=== PATIENT | male | born 1955 | race Caucasian/White ===

== ENCOUNTER 2025-01-31 10:05 | Outpatient (REF) | payer OTHER, SELFPAY ==
--- NOTE | 2025-01-31 | EMG_ITS ---
Please see the attached neurophysiology report MTDD
--- NOTE | 2025-01-31 | EMG_ITS ---
Please see the attached neurophysiology report MTDD
--- OUTSIDE RECORDS SUMMARY | 2025-01-31 10:35 | XMS_ITS | Clinical Summary ---
Author Organization [address] [place] [address] Address [address] [place] [address] Phone Care Team Providers Care Swaging Machine Operator Name Role Phone Caden Goins MD Primary Care Provider [phone] Allergies Active Allergy Reactions Criticality Noted Date Comments Codeine 02/25/2011 Medications lisinopril (PRINIVIL,ZESTR IL) 40 mg tablet Take 1 tablet by mouth once daily 90 tablet 2 4 Active hydroCHLOROthia zide (MICROZIDE) 12.5 mg capsule Take 1 capsule by mouth once daily in the morning 90 capsule 1 5 Active DICLOFENAC SODIUM TOP Apply 1 g topically 4 times daily as needed (Hand pain). 4 Active gabapentin (NEURONTIN) 300 mg capsule Take 1 capsule (300 mg total) by mouth at bedtime. 30 each 2 5 Active Active Problems Problem Noted Date Diagnosed Date Bite, insect 05/25/2019 Acid reflux 09/30/2017 Constipation 09/30/2017 Hyperlipidemia 09/30/2017 Assessment & Plan (11/23/2024 2:51 PM EDT): Low-fat diet advised Orders: CBC and differential; Future Comprehensive metabolic panel; Future Lipid panel with reflex to direct LDL; Future Thyroid stimulating hormone; Future Hemoglobin A1c; Future Vitamin B12; Future Hypertension 09/30/2017 Assessment & Plan (11/23/2024 2:51 PM EDT): Hypertension is under control on hydrochlorothiazide and lisinopril Orders: CBC and differential; Future Comprehensive metabolic panel; Future Lipid panel with reflex to direct LDL; Future Thyroid stimulating hormone; Future Hemoglobin A1c; Future Vitamin B12; Future Peripheral neuropathy 04/30/2017 Assessment & Plan (11/23/2024 2:51 PM EDT): In both hands for some time check B12 and A1c levels. Gabapentin sent to pharmacy. Orders: CBC and differential; Future Comprehensive metabolic panel; Future Lipid panel with reflex to direct LDL; Future Thyroid stimulating hormone; Future Hemoglobin A1c; Future Vitamin B12; Future Ambulatory referral to Neurology; Future Anxiety 10/17/2015 Internal hemorrhoids 10/21/2013 Irritable bowel syndrome 10/17/2012 Encounters Date Type Department Care Team Description 11/30/2024 Telephone Internal Medicine [facility] [address] [phone] Caden Goins MD Appointment 11/24/2024 Telephone Internal Medicine [facility] [address] [phone] Caden Goins MD Joseph: Lab results 11/23/2024 1:00 PM EDT Office Visit Internal Medicine [facility] [address] [phone] Caden Goins MD Primary hypertension (Primary Dx); Pure hypercholesterolemia; Low platelet count (CMS/HCC V24); Idiopathic peripheral neuropathy; Hyperglycemia; Screening for malignant neoplasm of prostate from Last 3 Months Immunizations Name Administration Dates Next Due Influenza trivalent, 0.5mL ( Fluad) 65yo and older 05/02/2021,05/02/2020 Influenza, Unspecified 05/15/2023 Moderna SARS-CoV-2 COVID-19, mRNA, LNP-S, preservative free 05/25/2021,11/14/2020,10/17/2020 Pneumococcal polysaccharide 23 valent (Pneumovax 23) 2yo and older 11/10/2010 Tdap Tetanus diptheria acell ular pertussis (Boostrix; Adacel) 7yo and older 06/11/2022,08/07/2011 Surgical History Surgery Date Site/Laterality Comments CATARACT EXTRACTION PROCEDURE: HISTORICAL CATARACT REMOVAL COLONOSCOPY PROCEDURE: HISTORICAL COLONOSCOPY; COMMENT: no report, no results Medical History Medical History Date Comments Acid reflux 09/30/2017 DX:Acid reflux Anxiety 10/17/2015 DX:Anxiety Constipation 09/30/2017 DX:Constipation Hyperlipidemia 09/30/2017 DX:Hyperlipidemi a Hypertension 09/30/2017 DX:Hypertension Internal hemorrhoids 10/21/2013 DX:Internal hemorrhoids Irritable bowel syndrome 10/17/2012 DX:Irri table bowel syndrome Peripheral neuropathy 04/30/2017 DX:Periphe ral neuropathy Social History Tobacco Use Types Packs/Day Years Used Date Smoking Tobacco: Former Cigarettes Q uit: 11/17/2013 Smokeless Tobacco: Never Alcohol Use Standard Drinks/Week Comments No 0 (1 standard drink = 0.6 oz pur e alcohol) Sex and Gender Information Value Date Recorded Sex Assigned at Not on file Legal Sex Male 9:53 AM EST Gender Identity Not on file Sexual Orientation Not on file Obstetrics History Last Filed Vital Signs Vital Sign Reading Time Taken Comments Blood Pressure 124/70 11/23/2024 1:22 PM EDT Pulse 77 11/23/2024 1:22 PM EDT Temperature 36.4 C (97.5 F) 11/23/2024 1:22 PM EDT Respiratory Rate - - Oxygen Saturation 96% 11/23/2024 1:22 PM EDT Inhaled Oxygen Concentration - - Weight 82.5 kg (181 lb 12.8 oz) 11/23/2024 1:22 PM EDT Height 165.1 cm (5' 5 ) 11/19/2023 10:5 6 AM EDT Body Mass Index 30.25 11/19/2023 10:56 AM EDT Plan of Treatment Upcoming Encounters Date Type Department Care Team (Late st Contact Info) Description 05/31/2025 9:30 AM EDT Office Visit Internal Medicine - [facility] [address] [facility] [facility] [address] [place] [id number] Caden Goins MD [address] [facility] [facility] [address] [place] [address] Health Maintenance Due Date Last Done Comments Zoster Vaccines (1 of 2) 2003 Abdominal Aortic Aneurysm (AAA) Screen 06/30/2022 Colorectal Cancer Screening: Colonoscopy 06/30/2022 Hepatitis C Screening 06/30/2022 Social Influencers of Health Screening 06/30/2022 COVID-19 Vaccine ( season) 2024 05/20/2022, 11/02/2021, 05/25/2021, Additional history exists Influenza Vaccine (#1) 2025 , 06/16/2021, 05/02/2021, Additional history exists Depression Screening 11/23/2025 11/23/2024, 11/19/19 Falls Risk Assessment 11/23/2025 11/23/2024 Hypertension/CHF/CAD Annual BMP Blood Test 11/23/2025 11/23/2024, 10/19/2023 Medicare Annual Wellness Visit 11/23/2025 11/23/2024 RSV Immunization Adult Patients (1 - 1-dose 75+ series) 2028 Cholesterol Screening (Lipid Panel) 11/23/2029 11/23/2024, 10/19/2023 DTaP,Tdap,and Td Vaccines (3 - Td or Tdap) 06/11/2032 06/11/2022, 08/07/2011 Pneumococcal Vaccine: 50+ Years Completed 09/19/2024, 11/10/2010 HIB Vaccines Aged Out No longer eligi ble based on patient's age to complete this topic HPV Vaccines Aged Out No longer eligi ble based on patient's age to complete this topic Hepatitis A Vaccines Aged Out No long er eligible based on patient's age to complete this topic Hepatitis B Vaccines Aged Out No long er eligible based on patient's age to complete this topic IPV Vaccines Aged Out No longer eligi ble based on patient's age to complete this topic MMR Vaccines Aged Out No longer eligi ble based on patient's age to complete this topic Meningococcal ACWY Vaccine Aged Out N o longer eligible based on patient's age to complete this topic Meningococcal B Vaccine Aged Out No l onger eligible based on patient's age to complete this topic RSV Immunization Patients Under 20 months Aged Out No longer eligible based on patient's age to complete this topic Varicella Vaccines Aged Out No longer eligible based on patient's age to complete this topic Procedures Procedure Name Priority Date/Time Associated Diagnosis Comments CBC WITH AUTO DIFFERENTIAL Routine 11/23/2024 2:46 PM EDT Primary hypertension Pure hypercholesterolem ia Low platelet count (CMS/HCC V24) Idiopathic peripheral neuropathy Hyperglycemia CBC AND DIFFERENTIAL Routine 11/23/2024 2:46 PM EDT Primary hypertension Pure hypercholesterolem ia Low platelet count (CMS/HCC V24) Idiopathic peripheral neuropathy Hyperglycemia COMPREHENSIVE METABOLIC PANEL Routine 11/23/2024 2:46 PM EDT Primary hypertension Pure hypercholesterolem ia Low platelet count (CMS/HCC V24) Idiopathic peripheral neuropathy Hyperglycemia LIPID PANEL WITH REFLEX TO DIRECT LDL Routine 11/23/2024 2:46 PM EDT Primary hypertension Pure hypercholesterolem ia Low platelet count (CMS/HCC V24) Idiopathic peripheral neuropathy Hyperglycemia THYROID STIMULATING HORMONE Routine 11/23/2024 2:46 PM EDT Primary hypertension Pure hypercholesterolem ia Low platelet count (CMS/HCC V24) Idiopathic peripheral neuropathy Hyperglycemia HEMOGLOBIN A1C Routine 11/23/2024 2:46 PM EDT Primary hypertension Pure hypercholesterolem ia Low platelet count (CMS/HCC V24) Idiopathic peripheral neuropathy Hyperglycemia VITAMIN B12 Routine 11/23/2024 2:46 PM EDT Primary hypertension Pure hypercholesterolem ia Low platelet count (CMS/HCC V24) Idiopathic peripheral neuropathy Hyperglycemia PROSTATE SPECIFIC ANTIGEN SCREEN Routine 11/23/2024 2:46 PM EDT Screening for malignant neoplasm of prostate HM DEPRESSION SCREENING Routine 11/19/2023 from Last 3 Months or Most Recently Relevant to Health Maintenance Results * Prostate specific antigen screen (11/23/2024 2:46 PM EDT) PSA 0.45 0.00 - 4.00 ng/mL LAB CHEMISTRY METHOD 11/23/2024 5:18 PM EDT [facility] Blood Venous blood specimen / Unknown Venipuncture / Unknown 11/23/2024 2:46 PM EDT 11/23/2024 3:00 PM EDT Narrative [facility] - 11/23/2024 5:18 PM EDT The Siemens Advia o9 Solutionsaur Chemiluminescent Immunoassay is used. Results obtained with different assay methods or kits cannot be used interchangeably. Results cannot be interpreted as absolute evidence of the presence or absence of malignant disease. Caden Goins MD LAB BLOOD ORDERABLES Final Resul t Performing Organization Address City/[facility]/ZIP Co de Phone Number [facility] [address] [place] [address], [place] [phone] * (ABNORMAL) Lipid panel with reflex to direct LDL (11/23/2024 2:46 PM EDT) Cholesterol 195 0 - 200 mg/dL LAB CHEMISTRY METHOD 11/23/2024 4:43 PM EDT [facility] Triglycerides 207(H) 0 - 150 mg/dL LAB CHEMISTRY METHOD 11/23/2024 4:43 PM EDT [facility] HDL 46 >=40 mg/dL LAB CHEMISTRY METHOD 11/23/2024 4:43 PM EDT [facility] LDL Calculated 108(H) 0 - 100 mg/dL LAB CHEMISTRY METHOD 11/23/2024 4:43 PM EDT [facility] VLDL Cholesterol Jayesh 41.4 mg/dL LAB CHEMISTRY METHOD 11/23/2024 4:43 PM EDT [facility] Non HDL Chol. (LDL+VLDL) 149(H) <145 mg/dL LAB CHEMISTRY METHOD 11/23/2024 4:43 PM EDT [facility] Chol/HDL Ratio 4.2 0.0 - 4.4 LAB CHEMISTRY METHOD 11/23/2024 4:43 PM EDT [facility] Blood Venous blood specimen / Unknown Venipuncture / Unknown 11/23/2024 2:46 PM EDT 11/23/2024 3:00 PM EDT Caden Goins MD LAB BLOOD ORDERABLES Final Resul t Performing Organization Address [facility]/ZIP Co de Phone Number [facility] [address] [place] [address], [place] [phone] * (ABNORMAL) CBC auto differential (11/23/2024 2:46 PM EDT) [facility] WBC 6.3 4.8 - 10.8 K/mcL LAB HEMETOLOGY METHOD 11/23/2024 3:16 PM EDT [facility] RBC 4.90 4.50 - 5.50 M/mcL LAB HEMETOLOGY METHOD 11/23/2024 3:16 PM EDT [facility] Hemoglobin 15.5 13.5 - 17.5 g/dL LAB HEMETOLOGY METHOD 11/23/2024 3:[facility] Hematocrit 43.1 42.0 - 54.0 % LAB HEMETOLOGY METHOD 11/23/2024 3:16 PM [facility] MCV 88.5 79.0 - 98.0 FL LAB HEMETOLOGY METHOD 11/23/2024 3:16 PM [facility] MCH 31.8 27.0 - 32.0 pcg LAB HEMETOLOGY METHOD 11/23/2024 3:16 PM [facility] MCHC 36.0 32.0 - 37.0 g/dL LAB HEMETOLOGY METHOD 11/23/2024 3:16 PM [facility] RDW 12.2 11.0 - 15.0 % LAB HEMETOLOGY METHOD 11/23/2024 3:16 PM EDT [facility] Platelets 116(L) 130 - 400 K/mcL LAB HEMETOLOGY METHOD 11/23/2024 3:16 PM [facility] MPV 10.9 7.0 - 11.0 FL LAB HEMETOLOGY METHOD 11/23/2024 3:16 PM [facility] NRBC 0.0 <1.0 % LAB HEMETOLOGY METHOD 11/23/2024 3:16 PM EDT [facility] NRBC Absolute 0.00 <0.10 K/mcL LAB HEMETOLOGY METHOD 11/23/2024 3:16 PM [facility] Neutrophils Relative 46.4 % LAB HEMETOLOGY METHOD 11/23/2024 3:16 PM [facility] Lymphocytes Relative 38.7 % LAB HEMETOLOGY METHOD 11/23/2024 3:16 PM [facility] Monocytes Relative 11.8 % LAB HEMETOLOGY METHOD 11/23/2024 3:16 PM [facility] Eosinophils Relative 2.1 % LAB HEMETOLOGY METHOD 11/23/2024 3:16 PM [facility] Basophils Relative 0.5 % LAB HEMETOLOGY METHOD 11/23/2024 3:16 PM [facility] Immature Granulocytes Relative 0.5 % LAB HEMETOLOGY METHOD 11/23/2024 3:16 PM [facility] Neutrophils Absolute 2.90 1.50 - 7.00 K/mcL LAB HEMETOLOGY METHOD 11/23/2024 3:16 PM [facility] Lymphocytes Absolute 2.42 1.00 - 5.00 K/mcL LAB HEMETOLOGY METHOD 11/23/2024 3:16 PM [facility] Monocytes Absolute 0.74 0.20 - 1.00 K/mcL LAB HEMETOLOGY METHOD 11/23/2024 3:16 PM [facility] Eosinophils Absolute 0.13 0.00 - 0.50 K/mcL LAB HEMETOLOGY METHOD 11/23/2024 3:16 PM [facility] Basophils Absolute 0.03 0.00 - 0.20 K/mcL LAB HEMETOLOGY METHOD 11/23/2024 3:16 PM [facility] Immature Granulocytes Absolute 0.03 0.00 - 0.03 K/mcL LAB HEMETOLOGY METHOD 11/23/2024 3:16 PM EDT [facility] Blood Venous blood specimen / Unknown Venipuncture / Unknown 11/23/2024 2:46 PM EDT 11/23/2024 3:01 PM EDT us Caden Goins MD LAB BLOOD ORDERABLES Final Resul t Performing Organization Address City/[facility]/ZIP Co de Phone Number [facility] [address] [place] [address], [place] [phone] * Thyroid stimulating hormone (11/23/2024 2:46 PM EDT) TSH 3.44 0.40 - 4.00 mcIU/mL LAB CHEMISTRY METHOD 11/23/2024 5:43 PM EDT [facility] Blood Venous blood specimen / Unknown Venipuncture / Unknown 11/23/2024 2:46 PM EDT 11/23/2024 3:00 PM EDT us Caden Goins MD LAB BLOOD ORDERABLES Final Resul t Performing Organization Address [facility] de Phone Number [facility] [address] [place] [address], [place] [phone] * Hemoglobin A1c (11/23/2024 2:46 PM EDT) Hemoglobin A1C 5.5 <6.5 % LAB CHEMISTRY METHOD 11/23/2024 3:50 PM EDT [facility] Mean Bld Glu Estim. 111 mg/dL LAB CHEMISTRY METHOD 11/23/2024 3:50 PM EDT [facility] Blood Venous blood specimen / Unknown Venipuncture / Unknown 11/23/2024 2:46 PM EDT 11/23/2024 3:01 PM EDT us Caden Goins MD LAB BLOOD ORDERABLES Final Resul t [facility] [address] [place] [address], [place] [phone] * Vitamin B12 (11/23/2024 2:46 PM EDT) [facility] Vitamin B-12 348 250 - 900 pcg/mL LAB CHEMISTRY METHOD 11/23/2024 4:43 PM EDT [facility] Blood Venous blood specimen / Unknown Venipuncture / Unknown 11/23/2024 2:46 PM EDT 11/23/2024 3:00 PM EDT Caden Goins MD LAB BLOOD ORDERABLES Final Resul t [facility] [address] [place] [address], [place] [phone] * (ABNORMAL) Comprehensive metabolic panel (11/23/2024 2:46 PM EDT) [facility] Sodium 137 133 - 145 mmol/L LAB CHEMISTRY METHOD 11/23/2024 4:43 PM [facility] Potassium 4.3 3.5 - 5.5 mmol/L LAB CHEMISTRY METHOD 11/23/2024 4:43 PM [facility] Chloride 105 96 - 110 mmol/L LAB CHEMISTRY METHOD 11/23/2024 4:43 PM [facility] CO2 26 21 - 32 mmol/L LAB CHEMISTRY METHOD 11/23/2024 4:43 PM T [facility] Anion Gap 6 3 - 11 LAB CHEMISTRY METHOD 11/23/2024 4:43 PM [facility] Glucose 103(H) 70 - 100 mg/dL LAB CHEMISTRY METHOD 11/23/2024 4:43 PM [facility] BUN 29(H) 5 - 25 mg/dL LAB CHEMISTRY METHOD 11/23/2024 4:43 PM T [facility] Creatinine 0.88 0.70 - 1.30 mg/dL LAB CHEMISTRY METHOD 11/23/2024 4:43 PM [facility] eGFR 92 >=60 mL/min/1. 73m2 LAB CHEMISTRY METHOD 11/23/2024 4:43 PM [facility] Comment:Calculation based on the Chronic Kidney Disease Epidemiology Collaboration (CKD-EPI) equation refit without adjustment for race. BUN/Creatinine Ratio 33.0 LAB CHEMISTRY METHOD 11/23/2024 4:43 PM [facility] Calcium 9.4 8.5 - 10.5 mg/dL LAB CHEMISTRY METHOD 11/23/2024 4:43 PM [facility] AST (SGOT) 25 10 - 42 unit/L LAB CHEMISTRY METHOD 11/23/2024 4:43 PM [facility] ALT (SGPT) 36 10 - 60 unit/L LAB CHEMISTRY METHOD 11/23/2024 4:43 PM [facility] Alkaline Phosphatase 56 42 - 121 unit/L LAB CHEMISTRY METHOD 11/23/2024 4:43 PM [facility] Total Protein 7.1 6.0 - 8.0 g/dL LAB CHEMISTRY METHOD 11/23/2024 4:43 PM [facility] Albumin 4.0 3.2 - 5.0 g/dL LAB CHEMISTRY METHOD 11/23/2024 4:43 PM [facility] Total Bilirubin 1.0 0.0 - 1.4 mg/dL LAB CHEMISTRY METHOD 11/23/2024 4:43 PM [facility] Blood Venous blood specimen / Unknown Venipuncture / Unknown 11/23/2024 2:46 PM EDT 11/23/2024 3:00 PM EDT us Caden Goins MD LAB BLOOD ORDERABLES Final Resul t [facility] [address] [place] [address], * Depression Screening (11/19/2023) Pathologist [facility] Depression Screening abastracted Historical Provider HEALTH MAINTENANCE Final Result from Last 3 Months or Most Recently Relevant to Health Maintenance Insurance [facility]ARE [facility] Care Teams Swaging Machine Operator Relationship Specialty Start Date End Date Caden Goins MD [address] [address] PCP - General Internal Medicine 07/18/18
== END 2025-01-31 10:06 | disposition home or self-care (01) ==
LOC: HO.NEURO 10:05
PROVIDERS: PCP Internal Medicine; Visit Provider Psychiatry & Neurology Neurology
DX: G56.11 Other lesions of median nerve, right upper limb (principal); G56.00 Carpal tunnel syndrome, unspecified upper limb
CPT/HCPCS: 95860; 95886; 95907; 95913

== ENCOUNTER → 2025-01-31 10:17 | Outpatient (BNV) | payer OTHER, SELFPAY | PROVIDERS: PCP Internal Medicine; Visit Provider Psychiatry & Neurology Neurology | DX: G56.03 Carpal tunnel syndrome, bilateral upper limbs (principal) | CPT/HCPCS: 95886; 95913 ==

== ENCOUNTER 2025-02-12 11:21 | Outpatient (AMB) | payer MEDICARE, SELFPAY ==
--- NOTE | 2025-02-12 11:46 | A.OFFVIS_ITS ---
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 It was more so on the left side. It was there all the time, and more painful at night. He could not sleep. Gabaepentin did not help. [facility] Medical History (Updated 02/12/25 @ 13:56 by Maik Reid MD) HTN (hypertension) CTS (carpal tunnel syndrome) Review of Systems Const Details: Constitutional:?No fever, chills, fatigue, weight loss, or night sweats. HEENT:?No headache, vision changes, hearing loss, nasal congestion, sore throat. Neurological:? Complain of numbness Psychiatric:?No anxiety, depression, mood swings, sleep disturbance, or hallucinations. Endocrine:?No heat/cold intolerance, polydipsia, polyuria, or hair/skin changes. Hematologic/Lymphatic:?No easy bruising, bleeding, or lymphadenopathy. Integumentary (Skin):?No rash, lesions, itching, or color changes. ? Physical Exam Neuro Other: Mental Status: Alert and oriented to person, place, and time. Normal attention. Normal spontaneous speech, fluency, and comprehension. No obvious issues with mood and memory. Affect is appropriate. Cranial Nerves: CN II: Visual wheeler full to confrontation, visual acuity intact. CN III, IV, : Pupils equal, round, reactive to light and accommodation. Extraocular movements are normal. CN V: Facial sensation is normal. CN VII: Facial movements symmetrical. CN VIII: Hearing intact to bedside conversation is normal. CN IX, X: Palate elevates symmetrically. CN XI: Shoulder shrug and head turn symmetrical. CN XII: Tongue midline without atrophy or fasciculations. Severe left and mild right APB atrophy. Extrapyramidal: Full facial expressions and blinking. No rigidity. Movements are appropriate with no tremor or abnormality. Speech: Normal; no dysarthria or tremor. Office Meds methylprednisolone acetate 40 mg/mL suspension for injection Performing Provider: Maik Reid MD Performing Location: [facility] [place] Neurology and Sleep-Hol Administered by: Maik Reid MD on 02/12/25 13:58 Dose Route Admin Location Dispensed Lot Number Expiration Date [facility] [employer] 40 mg IM 1 mL Total Dispensed Waste 1 mL 0 % Comments: both Left and the right sided injections done Assessment & Plan Assessment & Plan (1) CTS (carpal tunnel syndrome): Code(s): G56.00 - Carpal tunnel syndrome, unspecified upper limb Category: Medical Qualifiers: Laterality: bilateral Qualified Code(s): G56.03 - Carpal tunnel syndrome, bilateral upper limbs Plan Impression: a: Severe left Carpal tunnel syndrome b: Mild to moderate right Carpal tunnel syndrome Rec: a: He was educated about this condition b: Avoid repetitive hand motion or hard handiwork c: Refer to surgery for decompression Orders: Orders AMB Methylprednisolone Acetate Injection Today G56.03 - Carpal tunnel syndrome, bilateral upper limbs Referrals Orthopedics Referral G56.03 - Carpal tunnel syndrome, bilateral upper limbs Coding Level of Care Code Tele Est Pt Level 4 (16429) Diagnoses Bilateral carpal tunnel syndrome G56.03 Laterality: bilateral
--- OUTSIDE RECORDS SUMMARY | 2025-02-12 12:30 | XMS_ITS | Clinical Summary ---
Author Organization [address] [place] [address] Address [address] [place] [address] Phone Care Team Providers Care [employer] Specialist Name Role Phone Caden Goins MD Primary Care Provider Allergies Active Allergy Reactions Criticality Noted Date [...] Care Team Description 11/30/2024 Telephone Internal Medicine [facility] [address] [phone] Caden Goins MD Appointment 11/24/2024 Telephone Internal Medicine [facility] [address] [phone] Caden Goins MD Joseph: Lab results 11/23/2024 1:00 PM EDT Office Visit Internal Medicine [facility] [address] [phone] Caden Goins MD Primary hypertension [...] AM EDT Office Visit Internal Medicine - [place] [address] [facility] [address] [place] [id number] Caden Goins MD [address] [facility] [address] [place] [address] Health Maintenance Due Date Last Done Comments [...] LAB CHEMISTRY METHOD 11/23/2024 5:18 PM EDT [facility] Blood Venous blood specimen / Unknown Venipuncture / Unknown 11/23/2024 2:46 PM EDT 11/23/2024 3:00 PM EDT Narrative [facility] - 11/23/2024 5:18 PM EDT The Siemens [employer] Chemiluminescent Immunoassay is used. Results obtained with different assay methods or kits cannot be used interchangeably. Results cannot be interpreted as absolute evidence of the presence or absence of malignant disease. Caden Goins MD LAB BLOOD ORDERABLES Final Resul t Performing Organization Address City/[facility]/ZIP Co de Phone Number [facility] [address] [place] [address], [place] [phone] * (ABNORMAL) Lipid panel with reflex to direct LDL (11/23/2024 2:46 PM EDT) Cholesterol 195 0 - 200 mg/dL LAB CHEMISTRY METHOD 11/23/2024 4:43 PM EDT [facility] Triglycerides 207(H) 0 - 150 mg/dL LAB CHEMISTRY METHOD 11/23/2024 4:43 PM EDT [facility] HDL 46 >=40 mg/dL LAB CHEMISTRY METHOD 11/23/2024 4:43 PM EDT [facility] LDL Calculated 108(H) 0 - 100 mg/dL LAB CHEMISTRY METHOD 11/23/2024 4:43 PM EDT [facility] VLDL Cholesterol Jayesh 41.4 mg/dL LAB CHEMISTRY METHOD 11/23/2024 4:43 PM EDT [facility] Non HDL Chol. (LDL+VLDL) 149(H) <145 mg/dL LAB CHEMISTRY METHOD 11/23/2024 4:43 PM EDT [facility] Chol/HDL Ratio 4.2 0.0 - 4.4 LAB CHEMISTRY METHOD 11/23/2024 4:43 PM EDT [facility] Blood Venous blood specimen / Unknown Venipuncture / Unknown 11/23/2024 2:46 PM EDT 11/23/2024 3:00 PM EDT Caden Goins MD LAB BLOOD ORDERABLES Final Resul t Performing Organization Address [facility]/ZIP Co de Phone Number [facility] [address] [place] [address], [place] [phone] * (ABNORMAL) CBC auto differential (11/23/2024 2:46 PM EDT) [facility] WBC 6.3 4.8 - 10.8 K/mcL LAB HEMETOLOGY METHOD 11/23/2024 3:16 PM EDT [facility] RBC 4.90 4.50 - 5.50 M/mcL LAB HEMETOLOGY METHOD 11/23/2024 3:16 PM EDT [facility] Hemoglobin 15.5 13.5 - 17.5 g/dL LAB HEMETOLOGY METHOD 11/23/2024 3:[facility] Hematocrit 43.1 42.0 - 54.0 % LAB HEMETOLOGY METHOD 11/23/2024 3:[facility] MCV 88.5 79.0 - 98.0 FL LAB HEMETOLOGY METHOD 11/23/2024 3:[facility] MCH 31.8 27.0 - 32.0 pcg LAB HEMETOLOGY METHOD 11/23/2024 3:[facility] MCHC 36.0 32.0 - 37.0 g/dL LAB HEMETOLOGY METHOD 11/23/2024 3:[facility] RDW 12.2 11.0 - 15.0 % LAB HEMETOLOGY METHOD 11/23/2024 3:16 PM EDT [facility] Platelets 116(L) 130 - 400 K/mcL LAB HEMETOLOGY METHOD 11/23/2024 3:[facility] MPV 10.9 7.0 - 11.0 FL LAB HEMETOLOGY METHOD 11/23/2024 3:16 [facility] NRBC 0.0 <1.0 % LAB HEMETOLOGY METHOD 11/23/2024 3:16 PM EDT [facility] NRBC Absolute 0.00 <0.10 K/mcL LAB HEMETOLOGY METHOD 11/23/2024 3:16 PM [facility] Neutrophils Relative 46.4 % LAB HEMETOLOGY METHOD 11/23/2024 3:16 PM [facility] Lymphocytes Relative 38.7 % LAB HEMETOLOGY METHOD 11/23/2024 3:16 PM [facility] Monocytes Relative 11.8 % LAB HEMETOLOGY METHOD 11/23/2024 3:16 PM [facility] Eosinophils Relative 2.1 % LAB HEMETOLOGY METHOD 11/23/2024 3:16 PM [facility] Basophils Relative 0.5 % LAB HEMETOLOGY METHOD 11/23/2024 3:16 PM [facility] Immature Granulocytes Relative 0.5 % LAB HEMETOLOGY METHOD 11/23/2024 3:16 PM [facility] Neutrophils Absolute 2.90 1.50 - 7.00 K/mcL LAB HEMETOLOGY METHOD 11/23/2024 3:16 PM [facility] Lymphocytes Absolute 2.42 1.00 - 5.00 K/mcL LAB HEMETOLOGY METHOD 11/23/2024 3:16 PM [facility] Monocytes Absolute 0.74 0.20 - 1.00 K/mcL LAB HEMETOLOGY METHOD 11/23/2024 3:16 PM [facility] Eosinophils Absolute 0.13 0.00 - 0.50 K/mcL LAB HEMETOLOGY METHOD 11/23/2024 3:16 PM [facility] Basophils Absolute 0.03 0.00 - 0.20 K/mcL LAB HEMETOLOGY METHOD 11/23/2024 3:16 PM [facility] Immature Granulocytes Absolute 0.03 0.00 - 0.03 K/mcL LAB HEMETOLOGY METHOD 11/23/2024 3:16 PM EDT [facility] Blood Venous blood specimen / Unknown Venipuncture / Unknown 11/23/2024 2:46 PM EDT 11/23/2024 3:01 PM EDT us Caden Goins MD LAB BLOOD ORDERABLES Final Resul t Performing Organization Address City/[facility]/ZIP Co de Phone Number [facility] [address] [place] [address], [place] [phone] * Thyroid stimulating hormone (11/23/2024 2:46 PM EDT) TSH 3.44 0.40 - 4.00 mcIU/mL LAB CHEMISTRY METHOD 11/23/2024 5:43 PM EDT [facility] Blood Venous blood specimen / Unknown Venipuncture / Unknown 11/23/2024 2:46 PM EDT 11/23/2024 3:00 PM EDT us Caden Goins MD LAB BLOOD ORDERABLES Final Resul t Performing Organization Address [facility] de Phone Number [facility] [address] [place] [address], [place] [phone] * Hemoglobin A1c (11/23/2024 2:46 PM EDT) Hemoglobin A1C 5.5 <6.5 % LAB CHEMISTRY METHOD 11/23/2024 3:50 PM EDT [facility] Mean Bld Glu Estim. 111 mg/dL LAB CHEMISTRY METHOD 11/23/2024 3:50 PM EDT [facility] Blood Venous blood specimen / Unknown Venipuncture / Unknown 11/23/2024 2:46 PM EDT 11/23/2024 3:01 PM EDT us Caden Goins MD LAB BLOOD ORDERABLES Final Resul t [facility] [address] [place] [address], [place] [phone] * Vitamin B12 (11/23/2024 2:46 PM EDT) [facility] Vitamin B-12 348 250 - 900 pcg/mL LAB CHEMISTRY METHOD 11/23/2024 4:43 PM EDT [facility] Blood Venous blood specimen / Unknown Venipuncture / Unknown 11/23/2024 2:46 PM EDT 11/23/2024 3:00 PM EDT Caden Goins MD LAB BLOOD ORDERABLES Final Resul t [facility] [address] [place] [address], [place] [phone] * (ABNORMAL) Comprehensive metabolic panel (11/23/2024 2:46 PM EDT) [facility] Sodium 137 133 - 145 mmol/L LAB CHEMISTRY METHOD 11/23/2024 4:43 PM [facility] Potassium 4.3 3.5 - 5.5 mmol/L LAB CHEMISTRY METHOD 11/23/2024 4:43 PM [facility] Chloride 105 96 - 110 mmol/L LAB CHEMISTRY METHOD 11/23/2024 4:43 PM [facility] CO2 26 21 - 32 mmol/L LAB CHEMISTRY METHOD 11/23/2024 4:43 PM T [facility] Anion Gap 6 3 - 11 LAB CHEMISTRY METHOD 11/23/2024 4:43 PM [facility] Glucose 103(H) 70 - 100 mg/dL LAB CHEMISTRY METHOD 11/23/2024 4:43 PM [facility] BUN 29(H) 5 - 25 mg/dL LAB CHEMISTRY METHOD 11/23/2024 4:43 PM T [facility] Creatinine 0.88 0.70 - 1.30 mg/dL LAB CHEMISTRY METHOD 11/23/2024 4:43 PM [facility] eGFR 92 >=60 mL/min/1. 73m2 LAB CHEMISTRY METHOD 11/23/2024 4:43 PM [facility] Comment:Calculation based on the Chronic Kidney Disease Epidemiology Collaboration (CKD-EPI) equation refit without adjustment for race. BUN/Creatinine Ratio 33.0 LAB CHEMISTRY METHOD 11/23/2024 4:43 PM [facility] Calcium 9.4 8.5 - 10.5 mg/dL LAB CHEMISTRY METHOD 11/23/2024 4:43 PM [facility] AST (SGOT) 25 10 - 42 unit/L LAB CHEMISTRY METHOD 11/23/2024 4:43 PM [facility] ALT (SGPT) 36 10 - 60 unit/L LAB CHEMISTRY METHOD 11/23/2024 4:43 PM [facility] Alkaline Phosphatase 56 42 - 121 unit/L LAB CHEMISTRY METHOD 11/23/2024 4:43 PM [facility] Total Protein 7.1 6.0 - 8.0 g/dL LAB CHEMISTRY METHOD 11/23/2024 4:43 PM [facility] Albumin 4.0 3.2 - 5.0 g/dL LAB CHEMISTRY METHOD 11/23/2024 4:43 PM [facility] Total Bilirubin 1.0 0.0 - 1.4 mg/dL LAB CHEMISTRY METHOD 11/23/2024 4:43 PM [facility] Blood Venous blood specimen / Unknown Venipuncture / Unknown 11/23/2024 2:46 PM EDT 11/23/2024 3:00 PM EDT us Caden Goins MD LAB BLOOD ORDERABLES Final Resul t [facility] [address] [place] [address], * Depression Screening (11/19/2023) Pathologist [facility] Depression Screening abastracted Historical Provider HEALTH MAINTENANCE Final Result from Last 3 Months or Most Recently Relevant to Health Maintenance Insurance MEDICARE [facility] Care Teams [employer] Specialist Relationship Specialty Start Date End Date Caden Goins MD [address] [address] PCP - General Internal Medicine 07/18/18
== END 2025-02-12 12:08 | disposition home or self-care (01) ==
LOC: HO.HSM 11:22
PROVIDERS: PCP Internal Medicine; Visit Provider Psychiatry & Neurology Neurology
DX: G56.03 Carpal tunnel syndrome, bilateral upper limbs (principal)
CPT/HCPCS: 20526; 99214

== ENCOUNTER → 2025-02-12 11:21 | Outpatient (BNVA) | payer MEDICARE, SELFPAY | PROVIDERS: PCP Internal Medicine; Visit Provider Psychiatry & Neurology Neurology | DX: G56.03 Carpal tunnel syndrome, bilateral upper limbs (principal); Z79.52 Long term (current) use of systemic steroids | CPT/HCPCS: 20526; 96372; 99212; J1010 ==